=== PATIENT | female | born 1960 | race American Indian/Alaskan Native ===

== ENCOUNTER 2016-09-23 08:56 | Emergency (ER) | payer OTHER ==
[~2016-09-23] VITALS: Ht 167.6 cm; Wt 59.9 kg
[~2016-09-23 08:56] MED LIST: ACETAMINOP80 MG/0.8 PO; ALBUTEROL1.25 MG/3 INH; ALLEGRA ALLERG180 MG PO; BACTRIM DS TAB1 EACH PO; CEPHALEXIN500 MG PO; CYCLOBENZAPRINE10 MG PO; FEXOFENADINE H180 MG PO; HYDROCODON-ACE1 EAC8 PO; HYDROCODON-ACE1 EACH; HYDROXYZINE HCL25 MG PO; LIPITOR10 MG PO; LISINOPRIL1 GM; LISINOPRIL20 MG PO; MAG-OXIDE400 MG PO; MEDROXYPROGEST2.5 MG PO; MIDODRINE HCL10 MG PO; OMEPRAZOLE MAGN20 MG PO; PANTOPRAZOLE SO40 MG PO; PLAQUENIL200 MG PO; PLAVIX75 MG PO; PREMARIN0.625 MG PO; PRILOSEC20 MG PO; RANITIDINE HCL150 MG PO; REGLAN5 MG; VENTOLIN HFA18 GM INH
[2016-09-23] MEDS ORDERED: BACTRIM DS TAB1 EACH PO (09:14)
[2016-09-23] MEDS ORDERED: PREDNISONE20 MG PO ×2 (09:15→13:13)
--- NOTE | 2016-09-23 15:57 | EKG ---
[facility] [address] [facility] [address] [place], [place] [address] Signed Sinus tachycardia Otherwise normal ECG No previous ECGs available Confirmed by COLLEEN GIL MD ([id number]) on 09/23/2016 3:57:17 PM Electronically Signed By: COLLEEN GIL MD 09/23/16 1557 PATIENT NAME: XIANG LESLIE Electrocardiogram DATE OF : 62 PHYSICIAN: COLLEEN GIL MD REPORT #: [id number] REPORT IS CONFIDENTIAL AND NOT TO BE RELEASED WITHOUT AUTHORIZATION
== END 2016-09-23 13:37 | disposition home or self-care (01) ==
LOC: ED 08:56
DX: R05 Cough (principal); L30.9 Dermatitis, unspecified; I10 Essential (primary) hypertension; K21.9 Gastro-esophageal reflux disease without esophagitis; F41.9 Anxiety disorder, unspecified; Z86.73 Personal history of transient ischemic attack (TIA), and cerebral infarction without residual deficits; Z79.899 Other long term (current) drug therapy; Z88.6 Allergy status to analgesic agent; Z79.52 Long term (current) use of systemic steroids
CPT/HCPCS: 36415; 71020; 80053; 83880; 84484; 85025; 85379; 93005; 93010; 96372; 99284; J1200; J7512

== ENCOUNTER 2016-12-08 14:31 | Inpatient (IN) | payer OTHER ==
[~2016-12-08] VITALS: Ht 167.6 cm; Wt 61.1 kg
[~2016-12-08 14:31] MED LIST changes: +PREDNISONE20 MG PO
--- NOTE | 2016-12-08 18:49 | NUR ---
PT ARRIVED TO ROOM 129 VIA STRETCHER FROM ER. PT TRANSFERRED TO BED WITH 2 PERSON ASSIST AND SLIDER BOARD. VITAL SIGNS TAKEN AND MONITOR ON. PT ON 02 AT 4L PER NC, SATS 100%. 2ND BOLUS RUNNING FROM ER AND IVF D5 WITH CALCIUM GLUCONATE RUNNING AT 50 MLS/HR, MAGNESIUM 2 GM STARTED. 2ND IV STARTED BY EMILEE RN. NORMAL SALINE WITH 40 MEQ KCL STARTED AT 75 MLS/HR, AZITHROMYCIN ALSO STARTED. PT ABLE TO TAKE PO MEDS WITHOUT PROBLEMS. MAHAN CATH INSERTED BY EMILEE AND MAHAN DRAINING ORANGE COLORED URINE.
--- NOTE | 2016-12-08 20:00 | NUR ---
PT SHIFT REPORT RECIVED FROM DAY SHIFT RN. PT RESTING IN BED WITH FAMILY AT [facility] AT THIS TIME. ALL QUESTIONS ANSWERED.
--- NOTE | 2016-12-08 21:00 | NUR ---
PT URINE OUTPUT DIMINISHED. CALLED MD. PER MD GIVE 500ML BOLUS LR. WILL CONTINUE TO MONTIOR VITALS AND UO.
--- NOTE | 2016-12-08 22:05 | EKG ---
[facility] [address] [facility] [place] [address] Signed Sinus tachycardia Possible Anterior infarct , age undetermined Abnormal ECG When compared with ECG of 23-SEP-2016 09:01, No significant change was found Confirmed by RODRIGO LORD MD ([id number]) on 12/08/2016 10:05:26 PM Electronically Signed By: RODRIGO LORD MD 12/08/16 2205 PATIENT NAME: MARIAMAXIANG Electrocardiogram DATE OF : 62 PHYSICIAN: RODRIGO LORD MD REPORT #: [id number] REPORT IS CONFIDENTIAL AND NOT TO BE RELEASED WITHOUT AUTHORIZATION
--- NOTE | 2016-12-08 22:30 | NUR ---
CALLED MD AND UPDATED REGUARDING BOLUS AND UO. INCREASED MAINTANCE FLUIDS TO 125ML/HR. PER MD FINISH CURRENT BAG OF NS WITH 40 POTASSIUM THEN CHANGE BAG TO NEW SOLUTION OF NS WITH 20 POTASSIUM AND KEEP RATE AT 125. PT CONTINUES TO ITCH AND IS REQUESTING SOMETHING TO HELP WITH THE ITCHING. PER CALAMINE LOTION AND BENEDRYL ORDERED. WILL CONTINUE TO CLOSELY MONITOR PT.
--- NOTE | 2016-12-08 23:31 | NUR ---
PT REMAINS VERY ITCHY. SHE STATES HER BASELINE IS ITCHY ALL THE TIME. WAITING FOR PHARMACY TO BRING CALAMINE LOTION.
--- NOTE | 2016-12-09 00:10 | NUR ---
CALLED MD TO UPDATE REGUARDING CURRENT URINE OUTPUT. URINE IS DIMINISHED AT THIS TIME AT 11ML/HR.PER MD GIVE 1 LITTER LR OVER 1 HOUR. PER MD CALL AND UPDATE WITH LABS AND UO AFTER BOLUS.
--- NOTE | 2016-12-09 01:00 | NUR ---
LAB IN AT 0015 TO DRAW LABS. PT HAS POOR IV ACCESS. LAB ATTEMPTED SEVERAL TIMES. NO BLOOD RETURN FROM IV ACESS. LAB WAS ABLE TO GET ENOUGH FOR LABS AFTER AWHILE. PLACED PICC CONSULT D/T CONTINUED LABS AND IV ACESS WITH PATIENT HAVING POOR VENOUS ACCESS. WILL CONTINUE TO MONITOR. PT CURRENTL RECIVING BOLUS D/T DIMINISHED URINE OUTPUT. VITALS STABLE AT THIS TIME.
--- NOTE | 2016-12-09 01:23 | NUR ---
TRIED MULT TIMES FOR LAB DRAW, FINALLY DRAWN FROM FOOT. GOWN CHANGED AND DRAW SHEET CHANGED PER PT REQUEST DUE TO BEING DIAPHORETIC. STATES SHE SWEATS A LOT AT HOME. CONT OT ITCH CONSTANTLY. GIVEN 2MG MORPHINE IV FOR REST AND COMFORT.
--- NOTE | 2016-12-09 02:10 | NUR ---
CALLED MD TO UPDATE REGUARDING CURRENT ISSUES AND LAB RESULTS. UPDATED THAT PT HAS POOR IV ACCESS. PT HAS NOT SLEPT AND CONTINUES TO BE "MISERABLE" WITH ITCHING. PT IS BECOMING VERY RESTLESS. UPDATED REGUARDING URINE. PER MD CONTINUE CURRENT IV FLUIDS. NO MORE BOLUSES AT THIS TIME. GIVE PRN VISTARIL FOR ITCHING/RESTLESSNESS. WILL CONTINUE TO CLOSELY MONITOR. NO OTHER ISSUES AT THIS TIME.
--- NOTE | 2016-12-09 03:00 | NUR ---
PT STATES SHE FEELS A LITTLE BETTER THAN PREVIOUS IN THE SHIFT, BUT CONTINUES TO ITCH ALL OVER AND PT IS SEEN PICKING/ITCHING ALL OVER BODY. I WILL CONTINUE TO EDUCATED REGUARDING RELAXATION AND TO NOT SCRATCH. WILL CONTINUE TO MONITOR URINE OUTPUT EVERY HOUR.
--- NOTE | 2016-12-09 03:30 | NUR ---
PT IS MORE DIAPHORTIC THAN PREVIOUS IN THE SHIFT. CHECKED TEMPERATURE. PT TEMP IS 97.8 ORALLY. PT STATES "I OFTEN GET HOT FLASHES AND THIS HAPPENS". WILL CONTINUE TO CLOSELY MONITOR. GOWN/ BLANKETS CHANGED PER REQUEST. WILL CONTINUE TO MONITOR.
--- NOTE | 2016-12-09 05:00 | NUR ---
PT RESTING IN BED. PT CONTINUES TO ITCH. EDUCATED NOT TO SCRATCH. PT HAS MADE SEVERAL AREAS BLEED. PT STATES THE ITCHIGN IS NO DIFFERENT THAN HOW IT HAS BEEN AT HOME. PT STATES THE LAST MONTH ITCHING HAS BEEN WORSE AND EVEN WORSE THE PAST SEVERAL WEEKS.
--- NOTE | 2016-12-09 06:10 | NUR ---
CALLED AND UPDATED MD REGUARDING DIMINISHED URINE OUTPUT AND INCREASED DIAPHORESIS. PT USES TOWELS AT HOME TO REST ON TO HELP RELIEVE ITCHING. PER MD GIVE ALBUMIN AND CHANGE VISTARIL MEDICATION TO EVERY 4 HOURS NEEDED. REPLACED TELEMETRY LEADS.
--- NOTE | 2016-12-09 07:30 | NUR ---
SHIFT REPORT GIVEN TO DAY SHIFT RN. ALL QUESTIONS ANSWERED. PT IS GETTING UP TO GO TO 2 VIEW CHEST X-RAY. PT ASSISTED TO WHEELCHAIR. PT TOLERATED WELL. BEDDING REPLACED.
--- NOTE | 2016-12-09 07:30 | NUR ---
TO XRAY VIA W/C ACCOMP BY RN AND TECH. TRANSFER FRON BED TO W/C WITH ASSIST OF ONE STAFF IS STRONGER ON FEET. C/O MILD DIZZINESS. DENIES NUMBNESS OR TINGLING. STATES SHE FEEL SMUCH BETTER TODAY.
--- NOTE | 2016-12-09 07:45 | NUR ---
RETURN TO ROOM. TOLERATED XRAY WELL. TO CHAIR FOR BREAKFAST.
--- NOTE | 2016-12-09 08:00 | NUR ---
BLOOD DRAWN. ASSESSMENT DONE. IS UNDERSTANDING OF PLAN OF CARE FOR DAY.
--- NOTE | 2016-12-09 08:15 | NUR ---
BENDRYL GIVEN FOR ITCHING. C/O OF ITCHING ALL OVER BODY.
--- NOTE | 2016-12-09 10:00 | NUR ---
DR. LORD HERE TO SEE PATIENT. PATIENT WILL HAVE CT OF ABD TODAY. GRASTROGRAFIN GIVEN.
--- NOTE | 2016-12-09 11:46 | NUR ---
CONTINUE TO SIT UP IN CHAIR. FAMILY/FRIENDS IN ROOM.
--- NOTE | 2016-12-09 13:15 | NUR ---
TO CT VIA W/C, ACCOMP BY LOT ASSOCIATE AND RN.
--- NOTE | 2016-12-09 13:35 | NUR ---
RETURN TO CCU. TOLERATED CT WELL. BACK TO BED. Bev MCGARRY HERE TO PLACE PICC LINE. PATIENT C/O OF INCREASED PAIN IN HIPS WHEN HOB IS LOWER.
--- NOTE | 2016-12-09 13:50 | NUR ---
PT HAS HER BRO AND SISTERS IN VISITING. PT WAS SITTING IN CHAIR WITH BLANKETS. SHE SEEMED ALERT, ORIENTED BUT RATHER QUIET. HER FAMILY WERE LEAVING TO ATTEND THE R-UP. FAMILY AND PT REQUESTED PRAYER, WILL CONTINUE TO FOLLOW
--- NOTE | 2016-12-09 14:21 | NUR ---
CONSULT RECEIVED FOR PICC LINE PLACEMENT. MEDICAL RECORD REVIEWED AND PT INTERVIEWED. CCU RN QUESTION REGARDING PLAN OF CARE FOR PATIENT. PATIENT REPORTS HAVING A PICC LINE PLACED IN OTHER FACILITIES AND STATES "MY BODY REJECTS THEM AND THEY ONLY LAST A DAY OR TWO". EXISTING PIV APPEAR TO BE MIGRATING OUT OF PT'S BODY AND SHE REPORTS "THAT'S WHAT HAPPENS TO THE PICC LINES". NO PLANS FOR PT TO BE ON LONG-TERM ABX @ THIS JUNCTURE. SITE RITE ULTRASOUND USED TO START DEEP, PROXIMAL BASILIC VEIN IN RIGHT UPPER ARM. 20 ML NS FLUSHES EASILY THROUGH #20 IV. IV SECURED IN PLACE. VERBAL REPORT GIVEN TO RN. WILL BE AVAILABLE FOR PICC/MIDLINE PLACEMENT IN THE EVENT IT BECOMES NECESSARY.
--- NOTE | 2016-12-09 14:45 | NUR ---
VISTARIL 50 MG AND BENADRYL 25 MG PO GIVEN FOR ITCHING.
--- NOTE | 2016-12-09 15:00 | NUR ---
PHYS THERAPY HERE TO WORK WITH PATIENT.
--- NOTE | 2016-12-09 17:00 | NUR ---
UP TO BR TO EXPELL SMALL STOOL.
--- NOTE | 2016-12-09 17:40 | NUR ---
TO SHOWER VIA SHOWER CHAIR.
--- NOTE | 2016-12-09 19:07 | NUR ---
POOR APPETITE. C/O FEELING BLOATED. BEDSIDE REPORT GIVEN. U/O REMAINS LOW. DR. LORD IS AWARE. MONTOR LEADS ARE OFF AT THIS TIME, LEADS WILL NOT STAY ON PATIENT PT APPLIED MEDICATION TO SKIN.
--- NOTE | 2016-12-09 19:40 | NUR ---
REPORT RECIEVED FROM JIA AHUJA. IN TO SEE PT, PT WATCHING TV IN BED, SLIGHTLY SOB SHE JUST GOT BACK FROM USING THE BR. O2/2L/NC IN PLACE. PT DENIES NEEDS AT THIS TIME.
--- NOTE | 2016-12-09 20:15 | NUR ---
PT UP TO BSC FOR SOFT STOOL, BACK TO BED, SOB WITH ACTIVITY, RECOVERS AFTER A FEW MINUTES. ALERT AND ORIENTED, ASSESSMENT DONE. PT STATES SHE HAS BEEN ITCHING BUT NOT BAD AT THIS TIME. IVF INFUSING WELL INTO UPPER RIGHT ARM IV. MAHAN PATENT, DRAINING URINE, 20ML FOR THE LAST HOUR. BOWEL SOUNDS VERY HYPERACTIVE AND TINKLING IN UPPER QUADS AND HYPOACTIVE IN RLQ, A FEW HEARD IN LLQ. PT REPORTS MINIMAL FLATUS, "NO, IM ALL BLOATED UP, MY STOMACH IS REALLY BOTHERING ME", DOES NOT WANT HER DOSE OF CARAFATE TONIGHT SHE BELIEVES IT MAY BE CONTRIBUTING TO HER UPSET STOMACH.
--- NOTE | 2016-12-09 20:40 | NUR ---
HS MEDS GIVEN, PRN OXYCODONE 5MG GIVEN FOR "ALL OVER" 9/10 PAIN. PT UP TO BSC FOR ANOTHER BM, JUST SMALL AMOUNT OF LIQUID STOOL. BACK TO BED, SOB, RT IN TO SEE PT. PT WILL CALL WITH FURTHER NEEDS.
--- NOTE | 2016-12-09 21:13 | NUR ---
CALL TO DR LORD TO CHECK IN REGARDING URINE OUTPUT, WILL CONTINUE TO MONITOR THROUGH THE NIGHT AND WATCH FOR HYPOTENSION.
--- NOTE | 2016-12-09 21:24 | NUR ---
DR LORD CALLED BACK WITH ORDER TO INCREASE IVF, IVF TURNED UP TO 200ML/HR. PT AWAKE IN BED, NO REQUESTS AT THIS TIME. STATES PAIN DOWN TO 8/10. "ITS JUST NOW STARTING TO COME DOWN".
--- NOTE | 2016-12-09 22:00 | NUR ---
URINE OUTPUT 12ML FOR THE LAST HOUR. PT STATES PAIN IS MUCH LESS. READY TO TRY TO SLEEP FOR THE NIGHT.
--- NOTE | 2016-12-10 01:30 | NUR ---
PT WAS INC OF STOOL IN BED, ASSISTED TO CLEAN HERSELF UP, LINENS CHANGED AND THEN BACK TO BED. C/O 8 PAIN IN BACK AND HIPS, PRN OXYCODONE GIVEN.
--- NOTE | 2016-12-10 02:00 | NUR ---
PT UP TO BSC FOR LIQUID STOOL THEN BACK TO BED.
--- NOTE | 2016-12-10 03:01 | NUR ---
PT RESTING WITH EYES CLOSED, RESP EVEN AND UNLABORED.
--- NOTE | 2016-12-10 04:13 | NUR ---
PT CALLS, TO ASK FOR O2 TURNED UP, ON 2L TURNED UP TO 4L PT FEELS MORE SOB. SPO2 95%. ASSESSENT DONE. PTS HR UP TO 121. BP 151/80. STATES LAST PAIN PILL HELPED HER GET TO SLEEP. ALSO STATES SHE HAS BEEN PASSING A LOT OF FLATUS OVER THE LAST COUPLE OF HOURS. URINE OUTPUT REMAINS LOW, APPROX 12-20/HR. IVF INFUSING.
--- NOTE | 2016-12-10 06:37 | NUR ---
PT CALLS, INC OF LIQUID STOOL THEN ONTO BSC FOR MORE. HELPED TO GET CLEANED UP AND REPOSITIONED IN BED. PRN OXYCODONE 5MG GIVEN FOR 8/10 HIP AND BACK PAIN. IV SITE TO RIGHT ARM FLUSHES WELL WITH GOOD BLOOD RETURN.
--- NOTE | 2016-12-10 06:44 | NUR ---
XR IN FOR PCXR
--- NOTE | 2016-12-10 06:53 | NUR ---
PT WAS UP AND DOWN MUCH OF THE NIGHT WITH LOOSE STOOLS. URINE OUTPUT CONTINUED TO BE LOW FROM 10-20/HR. HR TACHYCARDIC 100-120. RR IS HIGH, 20-30 WITH PT REQUIRING HER USUAL 2L FOR HALF THE NIGHT AND THEN UP TO 4L/NC WITH CURRENT SPO2 96%, LUNGS CLEAR WITH OCCASIONAL COARSE SOUNDS HEARD. BOWEL SOUNDS HYPERACTIVE IN UPPER QUADS AND HYPOACTIVE/ABSENT IN LOWER QUADS.
[2016-12-10] MEDS ORDERED: NORVASC5 MG PO (08:47)
[2016-12-10] MEDS ORDERED: TYLENOL325 MG PO (08:48)
[2016-12-10] MEDS ORDERED: CLOBETASOL EMU100 GM TOP (08:51)
[2016-12-10] MEDS ORDERED: COLACE100 MG PO (08:52)
[2016-12-10] MEDS ORDERED: FEROSUL325 MG PO (08:53)
[2016-12-10] MEDS ORDERED: NIZORAL120 ML TOP (08:56)
[2016-12-10] MEDS ORDERED: CELLCEPT500 MG PO (08:57)
--- NOTE | 2016-12-10 10:23 | NUR ---
MED REC COMPLE[facility]. PATIENT NO LONGER TAKES MYCOPHENOLATE PER [facility] RECOMMENDATION TO STOP IF BLOOD PRESSURE INCREASED PER PATIENT INTERVIEW.
--- NOTE | 2016-12-10 13:35 | NUR ---
PT SITTING UP IN BED, WITH SHEET ON UPPER BODY, BLANKET ON HER LEGS. SHE SEEMED TO HAVE CHILLS, BUT SAID SHE DIDN'T. HER RN MK, CAME IN OUT OUT SEVERAL TIMES, TENDING TO HER. PT MENTIONED THAT HER BROTHER HAD LEFT TO RETURN HOME TO [place], BUT COULD COME BACK IF SHE NEEDED HIM. PRAYED WITH PT, SHE THANKED ME AND WISHED ME TO HAVE A GOOD DAY. GOD BLESS HER
--- NOTE | 2016-12-10 14:05 | NUR ---
WALL HUMIDITY ADDED TO PT O2 FOR PT COMFORT.
--- NOTE | 2016-12-10 14:50 | NUR ---
PT GIVEN 5 MG PO OXYCODONE FOR 8/10 GENERALIZED PAIN. PT SITTING UP IN CHAIR SOAKING HANDS IN BASIN WITH WARM SOAPY WATER AND CLEANING HER NAILS. WARM PACK GIVEN TO PT FOR UNDER RT ARM, PT C/O DISCOMFORT FROM HOLDING ARM AT AN ODD ANGLE FOR IV INSIRTION. IV SITE INTACT, NO REDNESS OR SWELLING NOTED, FLUIDS INFUSING EASILY, NO SIGNS OF INFILTRATION.
--- NOTE | 2016-12-10 15:43 | NUR ---
02 TURNED DOWN TO 2L VIA NASAL CANULA PER PT REQUEST. PT SITTING UP IN CHAIR DRINKING HOT TEA.
--- NOTE | 2016-12-10 17:20 | NUR ---
PT SITTING UP IN CHAIR EATING DINNER WITH HER FRINED. PT STATES WARM PACK HAS HELPED TO EASE DISCOMFORT IN RT UPPER ARM/UNDERARM. PT ALERT AND ORIENTED X4.
--- NOTE | 2016-12-10 19:03 | NUR ---
PT UP TO BEDSIDE COMMODE WITH ONE PERSON ASSIST, PT UNABLE TO HAVE BM, PT DID CARMEN CARE ON HERSELF. PT BACK TO CHAIR, GOWN CHANGED. PT HAS CALL LIGHT W/I REACH.
--- NOTE | 2016-12-10 19:30 | NUR ---
REPORT RECEIVED FROM MK AHUJA. PT AWAKE WATCHING TV, DENIES NEEDS AT THIS TIME. PLAN TO TRANSFER TO MED SURG FLOOR TONIGHT DISCUSSED WITH PT, PT AWARE.
--- NOTE | 2016-12-10 20:20 | NUR ---
PT TRANSFERRED TO MED SURG FLOOR ROOM 110, REPORT GIVEN.
--- NOTE | 2016-12-10 22:28 | NUR ---
PT ARRIVED AT 2019 ON THE FLOOR FROM CCU. PT RATED PAIN A 8. ALL LOBES WERE CLEAR, PT HAS NORMAL ACTIVE BOWEL TONES, V/S ARE WDL. O2 SATS AT 4L NC ARE >90%. PT IS ALERT AND ORIENTED. IV FLUIDS ARE RUNNING.
--- NOTE | 2016-12-10 23:00 | NUR ---
FELLOW RN ASSISTED PT TO BSC. PT HAD A VERY SMALL BM WHICH WAS FORMED. PT IS BACK IN BED RESTNG AT THIS TIME.
--- NOTE | 2016-12-11 00:45 | NUR ---
PT IS AWAKE IN BED TRYING TO SLEEP.
--- NOTE | 2016-12-11 02:02 | NUR ---
PT IS STILL SLIGHTLY TACHYCARDIC, HR WAS 106, ALL OTHER V/S WERE WDL. URINE OUTPUT FROM [id number] WAS 75ML. PT HAD A SMALL BM EARLIER THIS SHIFT BUT AT THIS TIME SHE DENIES PASSING GAS. HER BOWEL TONES IN ALL QUADRANTS ARE ALMOST HYPOACTIVE AT THIS TIME. OXYCODON 5MG PO PRN WAS GIVEN FOR PAIN AT 0045. PT AT THIS TIME IS A 4. ALL LOBES ARE CLEAR AT THIS TIME.
--- NOTE | 2016-12-11 04:25 | NUR ---
PT IS SLEEPING AT THIS TIME.
--- NOTE | 2016-12-11 05:13 | NUR ---
PT OVERALL HAD AN UNEVENTFUL NIGHT. PT HAS REMAINED TACHYCARDIC FOR THIS SHIFT SO FAR, HR 100-110. OTHER V/S ARE WDL. URINE OUTPUT FROM [id number] WAS 75ML. ALL LOBES WERE CLEAR FOR THIS SHIFT SO FAR. PT HAD A VERY SMALL BM. DRUNG FIRST ASSESSMENT PT HAD NORMAL ACTIVE BOWEL TONES. DURING HER SECOND ASSESSMENT, ALL BOWEL TONES WERE HYPOACTIVE. PT ALSO DENIES N/V AND PASSING GAS. PT HAS RECEIVED OXY 5MG PO X1 SO FAR. THIS SEEMS TO WORK WELL FOR HER. HER PAIN WENT FROM AN 8 TO A 4. PT SINCE ARRIVAL ON FLOOR HAS REMAINED ON 4L OF O2 NC. PT HAS DENIED SOB SO FAR.
--- NOTE | 2016-12-11 05:43 | NUR ---
PT JUST HAD A VERY SMALL BM. IT WAS LIGHT BROWN MUCUS ABOUT 10ML.
--- NOTE | 2016-12-11 07:20 | NUR ---
BEDSIDE HANDOFF REPORT RECEIVED FROM SUB ASSEMBLY TEAM WORKER RN. PT RESTING IN BED. PT VERY ANXIOUS ABOUT PAYING BILLS TODAY. PT DENIES OTHER NEEDS AT THIS TIME.
--- NOTE | 2016-12-11 07:47 | CONS ---
[facility] [address] [place], [place] [address] Signed DATE OF CONSULTATION: 12/10/16 REFERRING PHYSICIAN: Dr. Juju Garcia CHIEF COMPLAINT: Possible small-bowel obstruction. HISTORY OF PRESENT ILLNESS Xiang is a 56-year-old female, who unfortunately has rather significant scleroderma, systemic lupus erythematosus, and Raynaud's syndrome. She is quite feeble and looks much older than her stated age. She is a single mother who has had 7 children. She continues to live with her family. She has to use a walker for ambulation. She stopped her magnesium supplement a few weeks ago and subsequently she has had increasing generalized weakness, nausea and vomiting, anorexia. She came to the emergency room for evaluation. White count was slightly elevated. Magnesium was low and she had some renal insufficiency. CT scan was performed and there was concern about mildly prominent small bowel with possible a transition point and some thickening to the wall of the ilium. There was also some pulmonary fibrosis. She was admitted to our [facility]. She has been on Cefepime and Flagyl. Her electrolytes have been corrected. She has been given IV fluids, and things were improving. 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 Repeat follow-up x-ray in the morning showed that the oral contrast has passed into the cecum. There was still a little dilation of the small bowel. In talking with Xiang, she said she is feeling better. She said this is common for her scleroderma. She thinks in a few more days she will be back to her baseline. Currently, she is on a regular diet, although she has not eaten much. She did pass lots and lots of flatus and a good bowel movement. She said that did help. PAST MEDICAL HISTORY Scleroderma, anemia, stroke, systemic lupus erythematosus, Raynaud's syndrome, pneumonia in June 2016, gastroesophageal reflux disease, chronic cough, hyperlipidemia, eczema, back pain, interstitial lung disease. PAST SURGICAL HISTORY: Bilateral cataract surgery. SOCIAL HISTORY She does not smoke. She likes to drink 2 or 3 times a week. She is a single mom, had 7 children. She lives with her family. Her daughter is Aisha at [phone]. She uses a walker for ambulation. Dr. Vinnie Wu is her primary care provider. FAMILY HISTORY: Mom had breast cancer. Dad had gout and eczema. REVIEW OF SYSTEMS She had 10 systems reviewed and there was nothing new to add from her extensive medical records. Electronically Signed By: SRINIVAS LIRA MD 12/11/16 0747 PATIENT NAME: XIANG LESLIE CONSULTATION DATE OF : 62 PHYSICIAN: SRINIVAS LIRA MD REPORT #: [id number] REPORT IS CONFIDENTIAL AND NOT TO BE RELEASED WITHOUT AUTHORIZATION [facility] [address] [place] [id number] Signed ALLERGIES: Aspirin, causes nausea and vomiting apparently. MEDICATIONS: Plaquenil, Lipitor, Plavix, Protonix, Sally, and oxygen. PHYSICAL EXAMINATION VITAL SIGNS: Blood pressure is 155/78, heart rate is 112, respiratory rate 28, temperature is 97.7. She is 96% on 2 L nasal cannula. She is 5 feet 6 inches and 61 kg. GENERAL: Xiang is a 56-year-old female who appears much older than her stated age. She is feeble and has some alopecia as well. LUNGS: Clear to auscultation bilaterally in the upper queen. HEART: Tachycardia. ABDOMEN: Soft and flat, nontender. LABORATORY DATA White blood count is 11.5, hemoglobin 9.1, neutrophils 74. BUN 6, creatinine 0.73, magnesium is now 1.4. Liver function tests are improved. Alkaline phosphatase is 162, albumin is 2.2. Urine culture is no growth to date. Clostridium difficile is negative. Blood culture grew out 1 bottle with gram-positive cocci in cluster s and we are waiting for additional blood cultures. Stool cultures have been no growth to date. RADIOGRAPHIC STUDIES CT scan of the abdomen and pelvis showed a mildly prominent small bowel with some thickening to the wall of the ilium along with possible transition point in the pulmonary fibrosis. Follow-up x-ray in the morning show mildly dilated small and large bowel with contrast into the cecum and out into the ilium. Chest x-ray showed her interstitial lung disease. A previous echocardiogram showed preserved left ventricular ejection fraction. ASSESSMENT AND PLAN Xiang is a 56-year-old female, who is a very complex patient. I spent almost an hour reading through all her records. At this point, it does not appear she has a small bowel obstruction. She has never had previous abdominal surgery. No evidence of hernia and no clear evidence that she would have any cancer obstructing her small-bowel. She said this is very common for her scleroderma and now that she has been in the hospital for a day and half, she says she is feeling much better. She has already had lots of flatus, good bowel movement, and she is starting to take a regular diet. At this point, I think she is doing fine. We are going to follow her along conservatively with the Medical Service. I have explained this to Xiang and her nurse. They have expressed understanding and agreed to the above plan. Electronically Signed By: SRINIVAS LIRA MD 12/11/16 0747 PATIENT NAME: XIANG LESLIE CONSULTATION DATE OF : 62 PHYSICIAN: SRINIVAS LIRA MD REPORT #: [id number] REPORT IS CONFIDENTIAL AND NOT TO BE RELEASED WITHOUT AUTHORIZATION [address] [place], [place] [address] Signed MD MADAY Akers/Ministerio /[id number] cc: Dr. Vinnie Wu Electronically Signed By: SRINIVAS LIRA MD 12/11/16 0747 PATIENT NAME: XIANG LESLIE CONSULTATION DATE OF : 62 PHYSICIAN: SRINIVAS LIRA MD REPORT #: [id number] REPORT IS CONFIDENTIAL AND NOT TO BE RELEASED WITHOUT AUTHORIZATION
--- NOTE | 2016-12-11 08:40 | NUR ---
PT RESTING IN BED. ECHO COMPLETED. PT REQUESTING PAIN MEDICATION, RATING PAIN 10/10, GENERALIZED, GIVEN 5 MG OXYCODONE. PT TACHYPNIC, ON 4L NC, PT STATES SHE FEELS MORE SHORT OF BREATH, DRY COUGH, LUNG SOUNDS CLEAR. PT VERY ANXIOUS, WORRIED ABOUT "PAYING BILLS". PT BOWEL TONES ACTIVE, TOLERATING REGULAR DIET, ENSURE AT BEDSIDE. PT WITH CHRONIC RASH. PT SWEATING, SLIGHT TREMOR. PT WITH MAHAN CATH IN PLACE, DRAINING SMALL AMOUNT OF YELLOW URINE. PT REQUESTING TO REST. PT DENIES OTHER NEEDS AT THIS TIME.
--- NOTE | 2016-12-11 14:00 | NUR ---
PT IS SITTING UP IN CHAIR, FINISHING HER LUNCH WITH CALL LIGHT IN REACH. PT ASKED FOR HER SLIPPERS. PT DOES NOT NEED ANYHTING ELSE AT THE MOMENT
--- NOTE | 2016-12-11 18:37 | NUR ---
PT WITH INCREASING ANXIETY THROUGHOUT SHIFT, CONFUSED AT TIMES, HYDROXYZINE CHANGED FOR PRN ANXIETY. PT SOB, REQUIRING PRN NEB Q2H, LUNG SOUNDS CLEAR TO COARSE, ON 5L NC. PT UP WITH ASSIST X1, MAHAN DISCONTINUED AT 1530, DUE VOID. PT TOLERATING REGULAR DIET, POOR APPETITE. SLAINE LOCKED, IV ABX.
--- NOTE | 2016-12-11 19:59 | NUR ---
PATIENT CALLED, ASSISTED TO SIT ON THE CHAIR. CHANGED THE LINEN. PATIENT ASKED FOR HOT GREEN TEA, GIVEN.
--- NOTE | 2016-12-11 20:35 | NUR ---
RT OUT TO NURSES STATION, RN NOTIFIED THAT PT IS AGGITATED AND SOB. RN IN ROOM TO ASSESS PT. PT FOUND TO BE ANXIOUS, TREMULOUS AND TACHYPNIC. ASSESSMENT DONE AND VITALS OBTAINED. DR. LORD NOTIFIED OF CHANGES IN PT, VERBAL ORDER GIVEN FOR LORAZEPAM .5-1MG IV Q4 HOUR PRN FOR ANXIETY, TITRATE O2 TO KEEP SATS GREATER THAN 90 %. ORDERS VERIFIED VIA REPEAT BACK METHOD. RT ORDER REVIEWED WITH RT NIMCO WHO WAS CURRENTLY ON THE FLOOR TO MONITOR THE PT.
--- NOTE | 2016-12-11 20:56 | NUR ---
RESPIRATORY THERAPIST WAS WORKING WITH THE PATIENT GIVING HER TREATMENT. NURSE IS AWARE.
--- NOTE | 2016-12-11 21:00 | NUR ---
RN IN ROOM, LORAZEPAM 0.5 MG GIVEN IV FOR AGGITATION. PT UP IN CHAIR, RECLINED BACK. RT IN ROOM MONITORING PT. PULSE OX IN PLACE. PT SATURATING IN THE LOW 80'S ALTERNATING BETWEEN 5 L O2 VIA NC AND 5 L VIA MASK. PT ENCOURAGED TO RELAX AND FOCUSING ON CATCHING HER BREATH. NOTED AT THIS TIME THAT PT STATING SHE IS "AT HER HOUSE." PT REORIENTED TO PLACE AND TIME. PT STATES THAT SHE BELIEVES THE PULSE OX IS SAYING "XIANG I AM COMING TO GET YOU." PT COMFORTED,REASSURANCE GIVEN. RN AND RT CONTINUE TO BE IN ROOM TO MONITOR THE PT.
--- NOTE | 2016-12-11 21:30 | NUR ---
PT CONTINUES TO SIT IN CHAIR. PT IS VISIBLY AGGITATED, TREMULOUS AND TACHYPNIC. PT NOTED TO BE SCRATCHING ALL OVER. PT STATES "I JUST NEED TO CATCH MY BREATH." ENCOURAGED DEEP BREATHING WHILE PT RECLINED IN CHAIR. LORAZEPAM 0.5 MG IV GIVEN PER DR. LORD'S TELEPHONE ORDER. WILL CONTINUE TO MONITOR PT.
--- NOTE | 2016-12-11 22:05 | NUR ---
DR. LORD NOTIFIED INCREASED AGGITATION AND NO IMPROVEMENT IN RESPIRATORY FUNCTION. PER DR. LORD CXR ORDERED. DR. LORD WILL BE UP TO EVALUATE PT ONCE DONE IN ED. CXR ORDERED AND DI NOTIFIED. WILL CONTINUE TO MONITOR PT.
--- NOTE | 2016-12-11 22:30 | NUR ---
RN AND RT IN ROOM WITH PT. PT IS NOTED TO INCREASINGLY AGITATED WITH STAFF. PT REFUSING TO WEAR O2 VIA MASK DUE TO COMFORT. DR. LORD IN ROOM TO ASSESS PT. PT ASKING "WHY DO YOU GUYS KEEP BUGGING ME, I AM FINE." VERBAL ORDERS FOR MAHAN, ABG AND IV LASIX GIVEN BY DR. LORD. SEVERAL ATTEMPTS MADE BY RN AND OTHER STAFF TO ASSIST PT BACK TO BED. PT STATING " I NEED A BEER." PT ASKING STAFF IF SHE IS ABLE TO WALK TO THE STORE FOR BEER. ATTEMPTS MADE TO REORIENT PT TO TIME AND PLACE. PT BECOMING INCREASINGLY AGITATED. RN, RT,FUGITIVE DETECTIVE ,KAI WHAKARURUHAU AND MD MADE SEVERAL ATTEMPTS TO REORIENT PT AND PROVIDE COMFORT. PT STATES "I NEED TO GET OUT OF HERE. I NEED TO SEE MY SON." AT THIS POINT PT IS COMBATIVE INTERMITTENTLY STATING STAFF IS "DOING WEIRD SHIT TO ME." PT ASSISTED TO BED. 2 ATTEMPTS BY RN AND CHARGE NURSE MADE FOR MAHAN PLACEMENT, BOTH UNSUCCESSFUL DUE TO PT BEARING DOWN IN AGITATION. PT UP TO BEDSIDE COMMODE WITH 2 PERSON ASSIST. PT ASKING FOR HER CLOTHES STATING " I WANT TO GO HOME THIS IS BULLSHIT." PT ASSITED TO CHAIR AND ATTEMPTS TO REORIENT TO PLACE AND CURRENT SITUATION MADE. RN ATTEMPTED TO EXPLAIN TO PT CURRENT PLAN OF CARE AND THE NEED TO HELP EASE THE PT'S BREATHING. AT ONE POINT PT NOTES SEEING "SPIDERS RUNNING ON THE WALL." ORDER FOR IV HALOPERIDOL GIVEN BY DR. LORD AT BEDSIDE. PT GIVEN TO 2 MG HALOPERIDOL WITH ASSIST FROM KAI WHAKARURUHAU. PT ATTEMPTING TO PULL OUT IV WHILE CONTINUING TO ASK FOR HER CLOTHES. ATTEMPTS TO RESECURE AND FLUSH IV REFUSED BY PT. PT CONTINUED TO BE AGITATED, PER DR. LORD HALOPERIDOL GIVEN AT 0011. PT RESTING IN CHAIR. WARM BLANKETS GIVEN.
--- NOTE | 2016-12-12 00:10 | NUR ---
IV LASIX GIVEN TO PT PER DR. LORD'S ORDER. OKAY PER DR. LORD TO NOT ATTEMPT MAHAN PLACEMENT AT THIS TIME. PT APPEARING MORE CALM. PT ASSITED BACK TO BED WITH 3 PERSON ASSIST. PULSE OX AND HIGH FLOW NC IN PLACE. WILL CONTINUE TO MONITOR.
--- NOTE | 2016-12-12 00:35 | NUR ---
PT AWAKE, ATTEMPTING TO GET OUT OF BED. PT STATING " I HAVE TO PEE." ASSISTED UP TO BSC WITH 2 PERSON ASSIST. INCONTINENT OF LARGE AMOUNT OF URINE IN BED. LINENS AND GOWN CHANGES. PT STATES " I AM SLEEPY." ASSISTED BACK TO BED. PULSE OX AND HIGH FLOW NC IN PLACE. ALL SIDE RAILS UP, BED ALARM ON. CALL LIGHT WITHIN REACH.
--- NOTE | 2016-12-12 02:15 | NUR ---
IN TO CHECK ON PT, PT SLEEPING. O2 SATS 95% ON HIGH FLOW NC 20 L. RR NOTED AT 40-42. LUNG SOUNDS ASSESSED. DR. LORD NOTIFIED OF ELEVATED RR. PER DR. LORD REPEAT LASIX 40 MG, IV @ 0400. CONTINUE TO MONITOR PT. IF DESATURATION OCCURS OR AGITATION INCREASES NOTIFY MD. ORDERS VERIFIED BY READ BACK. WILL CONTINUE TO MONITOR PT.
--- NOTE | 2016-12-12 03:30 | NUR ---
IN TO CHECK ON PT, FOCUS RESPIRATORY ASSESSMENT COMPLETED. ABNORMAL ACOUSTIC BREATH SOUNDS NOTED. RT IN ROOM TO AUSCULTATE. PT RESTING. PULSE OX AND O2 IN PLACE. CALL LIGHT IN PLACE. WILL CONTINUE TO MONITOR.
--- NOTE | 2016-12-12 04:00 | NUR ---
IN TO GIVE 0400 IV LASIX. PT AWAKENS TO NOISE. STATES SHE HAS TO GO TO THE BATHROOM. PT INCONTINENT OF LARGE AMOUNT OF URINE. LINENS CHANGED. PT VERBSLLY AGREES TO MAHAN CATH PLACEMENT AT THIS TIME. MAHAN PLACED. PT TACHYPNIC RR 42 WHILE CHANGING LINEN. PT STATES " I NEED SOMETHING FOR MY BREATHING." RT CALLED TO FLOOR TO ADMINISTER NEB TREATMENT. PT TOLERATES FAIR. IV ABX INFUSING.
--- NOTE | 2016-12-12 06:55 | NUR ---
BEDSIDE HANDOFF REPORT RECIEVD FROM QUANTITATIVE SOFTWARE ENGINEER RN. PT RESTING IN BED. TACHYPNIC RR 60, HIGH FLOW NASAL CANULA IN PLACE. MAHAN CATH IN PLACE.
--- NOTE | 2016-12-12 07:30 | NUR ---
[id number] YR OLD FEMALE PATIENT ADMTTED TO CCU FROM [facility] WITH DX OF REST FAILURE. UPON ADMIT PATIENT IS EXTREMELY DYSPNEIC. ABLE TO SAY ONLY ONE WORD. HOB IS ELEVATED. MAHAN CATH IS PATENT WITH CLEAR YELLOW URINE. DR. LORD IS HERE TO SEE PATIENT. RT IN ROOM. ORDERS RECIEVED TO [facility]. SEE ASSESSMENT. 0800 IV SITE STARTED TO RIGHT FOOT. BP 90/60. BOLUS OF LR HUNG PER ORDERS. BLOOD PRESSURE VARIES FROM 80/50 TO 140/80. DR LORD AWARE OF THIS. 0830. [employer] PROGRAM COORDINATOR [facility] WITH SIZE 7.5 ETT AND TAPED 21 AT TEETH. 0835. CHEST XRAY DONE, EET PLACEMENT COMFIRMED, ETCO2-25. VENT SETTINGS PER RT. PATIENT WILL BE TRANSFERRED TO [facility] TODAY. AWAITING BED COMFIRMATION. 0900. SOLUCORTEF 250 MG IV GIVEN PER ORDERS. DIPRAVAN DRIP STARTED EARLIER AT 20MCG/KG/MIN. WT IS 60 KG. VANCO HUNG/CEFEPIME HUNG. WILL HOLD SEPTRA NOT COMPATIBLE WITH DIPRAVAN OR VANCO AND CEFEPIME. 0915. FLIGHT TEAM HERE REPORT TO THEM. 0945. TO [facility] VIA [facility]. FAMILY HERE.
--- NOTE | 2016-12-12 10:20 | NUR ---
REPORT CALLED TO PARAMJIT GUERRERO. PATIENT BELONGINGS THAT WHERE IN ROOM SENT HOME WITH PATIENT FAMILY. ITEMS IN THAT WHERE PUT IN SAFE ON ADMISSION REMAIN IN SAFE AT THIS TIME.
--- NOTE | 2016-12-12 11:00 | NUR ---
PATIENT HAS BEEN TRANSFERRED OUT OF HOSPITAL. NO PHYSICAL THERAPY FOLLOW UP TODAY.
--- NOTE | 2016-12-21 15:45 | NUR ---
Nursing water supervisor calls family to return new walker that was taken when patient left hospital. Walker was brand new, and belongs to hospital (per pt christiane) Patient's daughter to return walker in am, very understanding and appologetic of mix up.
== END 2016-12-12 09:45 | disposition short-term general hospital (02) | DRG 871 ==
LOC: ED 14:31 → CCU 17:00 → MS 12-10 20:22 → CCU 12-12 07:30
PROVIDERS: ADMIT Internal Medicine
PROC: 5A1935Z Respiratory Ventilation, Less than 24 Consecutive Hours (ICD-10-PCS; principal; 2016-12-12)
PROC: 0BH17EZ Insertion of Endotracheal Airway into Trachea, Via Natural or Artificial Opening (ICD-10-PCS; 2016-12-12)
DX: A41.02 Sepsis due to Methicillin resistant Staphylococcus aureus (principal); J96.21 Acute and chronic respiratory failure with hypoxia; J81.0 Acute pulmonary edema; G92 Toxic encephalopathy; N17.9 Acute kidney failure, unspecified; K56.60 Unspecified intestinal obstruction; N39.0 Urinary tract infection, site not specified; E27.40 Unspecified adrenocortical insufficiency; E46 Unspecified protein-calorie malnutrition; M34.1 CR(E)ST syndrome; E83.42 Hypomagnesemia; E83.51 Hypocalcemia; I10 Essential (primary) hypertension; G89.29 Other chronic pain; F41.9 Anxiety disorder, unspecified; I73.00 Raynaud's syndrome without gangrene; M32.9 Systemic lupus erythematosus, unspecified; R00.1 Bradycardia, unspecified; K21.0 Gastro-esophageal reflux disease with esophagitis; D64.9 Anemia, unspecified; L30.9 Dermatitis, unspecified; Z86.73 Personal history of transient ischemic attack (TIA), and cerebral infarction without residual deficits; T42.4X5A Adverse effect of benzodiazepines, initial encounter; Y92.230 Patient room in hospital as the place of occurrence of the external cause
CPT/HCPCS: 31500; 36415; 51701; 71010; 71020; 74020; 74176; 80048; 80053; 80400; 81001; 82306; 82533; 82570; 82607; 82728; 82746; 83540; 83605; 83735; 83880; 84300; 84466; 84540; 85025; 85045; 86140; 87040; 87045; 87046; 87077; 87088; 87186; 87449; 87493; 87899; 93005; 93010; 93306; 94002; 94640; 94668; 94799; 96361; 96365; 96366; 97110; 97162; 97165; 99285; J0456; J0610; J0692; J0834; J1630; J1650; J1720; J2060; J2250; J2270; J2405; J2704; J2930; J3370; J3475; J7030; J7060; J7120; P9047